=== PATIENT | female | born 1990 | race Hispanic/Latino ===

== ENCOUNTER 2022-03-22 10:16 | Emergency (ER) | payer OTHER ==
[~2022-03-22] VITALS: Ht 154.9 cm; Wt 91.6 kg
[2022-03-22] MEDS ORDERED: CEPHALEXIN500 MG PO (13:27)
[2022-03-22] MEDS ORDERED: TRIAMCINOLONE A15 G1 TOP (13:30)
== END 2022-03-22 13:43 | disposition home or self-care (01) ==
LOC: EDBD → FSED 10:26
DX: L30.9 Dermatitis, unspecified (principal); F17.210 Nicotine dependence, cigarettes, uncomplicated
CPT/HCPCS: 99283

== ENCOUNTER 2022-03-23 01:48 | Emergency (ER) | payer OTHER ==
[~2022-03-23] VITALS: Ht 154.9 cm; Wt 91.6 kg
[~2022-03-23 01:48] MED LIST: CEPHALEXIN500 MG PO; TRIAMCINOLONE A15 G1 TOP
== END 2022-03-23 02:30 | disposition home or self-care (01) ==
LOC: FSED 02:00
DX: L03.116 Cellulitis of left lower limb (principal)
CPT/HCPCS: 99282